=== PATIENT | male | born 1965 | race Caucasian/White ===

== ENCOUNTER 2016-04-15 12:37 | Emergency (ER) | payer OTHER ==
[~2016-04-15] VITALS: Ht 175.3 cm; Wt 165.0 kg
[2016-04-15 12:42] VITALS: BP 138/91; PULSE 130; RESP 15; O2SAT 97
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
[2016-04-15] MEDS ORDERED: 0.9% Sodium Chloride 1,000 ML IV ONE (13:02)
[2016-04-15 13:31] LABS: BASOPHILS % (AUTO) 0.6 % (0-3); EOSINOPHILS % (AUTO) 3.6 % (0-5); MONOCYTES % (AUTO) 11.8 % (4-12); Mean Corpuscular Volume 84.9 fL (81-100); NEUTROPHILS % (AUTO) 59.2 % (40-74); Platelet Count 237 bil/L (150-400)
[2016-04-15] MEDS: Ondansetron 2 mg/mL 2 mL Inj IV PRN ×3 (13:32→23:35)
[2016-04-15 13:48] LABS: Magnesium 2.1 mg/dL (1.6-2.6)
[2016-04-15] MEDS ORDERED: Haloperidol 5 mg/mL Inj IVPUSH ONE (16:35)
[2016-04-15 18:55] VITALS: PULSE 72; RESP 16; O2SAT 94
[2016-04-15 20:24] VITALS: PULSE 77; RESP 14
[2016-04-15 20:53] VITALS: BP 141/95; PULSE 80; RESP 11; O2SAT 97
[2016-04-15] MEDS ORDERED: _LORazepam 2 MG Tablet PO SCH (21:25)
[2016-04-15 23:42] VITALS: BP 135/80; PULSE 86; RESP 24; O2SAT 95
== END 2016-04-15 23:49 | disposition home or self-care (01) ==
LOC: SED 12:37
DX: F10.232 Alcohol dependence with withdrawal with perceptual disturbance (principal); Y90.8 Blood alcohol level of 240 mg/100 ml or more; F17.200 Nicotine dependence, unspecified, uncomplicated; Z87.19 Personal history of other diseases of the digestive system; Z87.828 Personal history of other (healed) physical injury and trauma; Z88.2 Allergy status to sulfonamides; Z88.1 Allergy status to other antibiotic agents
CPT/HCPCS: 36415; 80053; 82075; 83735; 85025; 93005; 96361; 96374; 96375; 96376; 99285; G0480; J1630; J2405; J3360; J7030